=== PATIENT | female | born 1980 | race Caucasian/White ===

== ENCOUNTER 2020-07-17 13:15 | Outpatient (REF) | payer OTHER, SELFPAY ==
[2020-07-20 00:47] LABS: HPV mRNA E6/E7 rflx Not Detected (Not Detected)
== END 2020-07-17 13:16 | disposition home or self-care (01) ==
LOC: HO.LAB 13:15
PROVIDERS: PCP Internal Medicine; Visit Provider Obstetrics & Gynecology
DX: Z01.419 Encounter for gynecological examination (general) (routine) without abnormal findings (principal); D24.2 Benign neoplasm of left breast
CPT/HCPCS: 36415; 87624; 88141; 88142

== ENCOUNTER 2023-12-04 08:29 | Outpatient (AMB) | payer BC, SELFPAY ==
--- NOTE | 2023-12-04 08:32 | MHC.PC.OV ---
Vital Signs 12/04/23 08:33 Height 5 ft 4 in Weight 192 lb BMI 33.0 BP 130/88 Blood Pressure Location Rt brachial Position Sitting Pulse 102 H Pulse Source Pulse Oximeter Pulse Oximetry (%) 98 Oxygen Delivery Method Room Air Intake Visit Reasons: Physical Intake Note: Pt is here today for PE. Allergies No Known Allergies Allergy (Verified 12/04/23 08:34) Medication List - Last Reconciled 12/04/23 by Rachana Rosa MD clonazepam 0.5 mg PO DAILY dextroamphetamine-amphetamine 10 mg 20 mg PO DAILY fluoxetine (Prozac) 20 mg PO .qd lisinopril 5 mg PO DAILY Tobacco use date assessed: 12/04/23 Dental Screening Dental Screen Date: 12/04/23 Did you have a dental visit in the last 12 months?: Yes Did you have a dental problem in the last 6 months where you did not have access to dental care?: No Was dental information given to patient?: Patient has dentist HPI Physical HPI Details Pt presents for PE. Pt f/u with psychiatrist and therapist for ADHD chronic anxiety controlled on current medications. She has not been taking lisinopril and is planning to start regular exercise. [facility] Medical History HTN (hypertension) Normal Pap smear Eating disorder ADHD Anxiety Annual physical exam Patient denies medical problems Surgical History History of dilation and curettage History of breast biopsy Family History Father No problems noted. Mother Mental health disorder Social History Household Members Other:: In relationship, works as a social media developer Housing: House Alcohol intake: current Alcohol intake frequency: holidays/special occasions only Patient Tobacco Use Status: Former Tobacco user e-Cigarette/Vaping Use: Never Used Substance Use Type: Marijuana service: No Current occupational status: employed Gender identity: Female Cognitive needs: No Hearing needs: No Vision needs: Yes Questionnaire PHQ-9 Over the last 2 weeks, how often have you been bothered by any of the following problems? 1. Little interest or pleasure in doing things: several days 2. Feeling down, depressed, or hopeless: several days 3. Trouble falling or staying asleep, or sleeping too much: more than half the days 4. Feeling tired or having little energy: several days 5. Poor appetite or overeating: not at all 6. Feeling bad about yourself - or that you are a failure or have let yourself or your family down: several days 7. Trouble concentrating on things, such as reading the newspaper or watching television: several days 8. Moving or speaking so slowly that other people could have noticed. Or the opposite - being so fidgety or restless that you have been moving around a lot more than usual: not at all 9. Thoughts that you would be better off or of hurting yourself in some way: not at all Total score: 7 Depression Screening Interpretation: Negative Depression Screening Done: Yes Source: Developed by Drs. Anson Dietrich, Alejandra Orantes, Daniel Ames and colleagues, with an educational anthony from [employer]. Thrive Questionnaire Date Thrive assessed: 12/04/23 I am a: Patient What is your living situation today?: I have a steady place to live Within the past 12 months, did the food you bought not last and you didn't have the money to get more?: Never true Within the past 12 months, did you worry whether your food would run out before you got money to buy more?: Never true Do you have trouble paying for medicines?: No Do you have trouble getting transportation to medical appointments?: No Do you have trouble paying your heating and electricity bill?: No Do you have trouble taking care of your child, family member or friend?: No Do you have trouble with day-to-day activities such as bathing, preparing meals, shopping, managing finances, etc.?: No Are you currently unemployed and looking for a job?: No Are you interested in more education?: No Please select the resources that you would like help with: Housing/Residential Currently or been in a relationship where the following occur: No concerns reported THRIVE Score: 0 AUDIT C Alcohol Use Questionnaire (AUDIT-C) 1. How often do you have a drink containing alcohol?: 4 or more times a week 2. How many drinks containing alcohol do you have on a typical day when you are drinking?: 1 or 2 3. How often do you have six or more drinks on one occasion?: Less than monthly Total Score: 5 MARIA M-7 AMB Questionnaire MARIA M-7 Date MARIA M - 7 assessed: 12/04/23 Feeling nervous, anxious, or on edge: 2 = More than half the days Not being able to stop or control worryin = Several days Worrying too much about different things: 1 = Several days Trouble relaxin = Several days Being so restless that it is hard to sit still: 0 = Not at all Becoming easily annoyed or irritable: 1 = Several days Feeling afraid as if something awful might happen: 0 = Not at all Total MARIA M-7 score (0-4 normal; 5-9 mild; 10-14 moderate; 15-21 severe): 6 Source: Developed by Drs. Anson Dietrich, Alejandra Orantes, Daniel Ames and colleagues, with an educational anthony from [employer]. Review of Systems Const All systems reviewed & are unremarkable except as noted in HPI and below Reports no additional complaints Eyes Reports no additional complaints ENT Reports no additional complaints Card Reports no additional complaints Resp Reports no additional complaints GI Reports no additional complaints Reports no additional complaints Physical exam (Primary Care) Vital Signs: Last Vital Signs Pulse 102 H 12/04/23 08:33 Pulse Ox 98 12/04/23 08:33 Oxygen Delivery Method Room Air 12/04/23 08:33 BMI result Body Mass Index 33.0 Tobacco/Smoking Status: Tobacco use Status Tobacco use date assessed 12/04/23 12/04/23 08:35 Patient Tobacco Use Status Former Tobacco user 12/04/23 08:50 e-Cigarette/Vaping Use Never Used 12/04/23 08:50 PHQ-9: PHQ-9 Score PHQ-9: Total score 7 12/04/23 08:35 Depression Screening Interpretation: Negative Thrive Assessment: Date of Thrive Assessment Date Thrive assessed 12/04/23 12/04/23 08:35 Currently or been in a relationship where the following occur: No concerns reported Const General: no acute distress HENMT Head: Yes normal to inspection Ears: hearing grossly normal bilaterally Face and sinus: Yes normal facial exam Throat: Yes posterior oropharynx normal Eyes General: appearance normal, both eyes and all related structures Neck Neck: Yes no lymphadenopathy and Yes supple Resp Effort & Inspection: normal respiratory effort Auscultation: clear to auscultation bilaterally Cardio Rhythm: regular rhythm Heart sounds: S1 normal heart sound present and S2 normal heart sound present GI Inspection: Yes normal to inspection Palpation (GI): Soft to palpation Percussion: Yes normal to percussion Auscultation: normal bowel sounds Assessment and Plan Assessment & Plan (1) ADHD: Code(s): F90.9 - Attention-deficit hyperactivity disorder, unspecified type Plan: Follow-up with the psychiatrist and therapist (2) Anxiety: Code(s): F41.9 - Anxiety disorder, unspecified Plan: Stress management mindfulness increasing regular physical activity discussed with the patient (3) Annual physical exam: Code(s): Z00.00 - Encounter for general adult medical examination without abnormal findings Plan: Well-balanced diet regular physical activity discussed with the patient she will return for fasting blood work. For borderline elevated blood pressure patient was advised to avoid salt intake lose weight and return in 3 months. Patient will have a fasting blood work next week. He is up-to-date with the Pap smear mammogram by plaster foreman Orders: Orders Comprehensive [place]. Panel Fast Today F41.9 - Anxiety disorder, unspecified, F90.9 - Attention-deficit hyperactivity disorder, unspecified type, Z00.00 - Encounter for general adult medical examination without abnormal findings Lipid Panel Today F41.9 - Anxiety disorder, unspecified, F90.9 - Attention-deficit hyperactivity disorder, unspecified type, Z00.00 - Encounter for general adult medical examination without abnormal findings UA w Microscopic Today F41.9 - Anxiety disorder, unspecified, F90.9 - Attention-deficit hyperactivity disorder, unspecified type, Z00.00 - Encounter for general adult medical examination without abnormal findings Complete Blood Count Auto Diff Today F41.9 - Anxiety disorder, unspecified, F90.9 - Attention-deficit hyperactivity disorder, unspecified type, Z00.00 - Encounter for general adult medical examination without abnormal findings TSH reflex Free T4 Today F41.9 - Anxiety disorder, unspecified, F90.9 - Attention-deficit hyperactivity disorder, unspecified type, Z00.00 - Encounter for general adult medical examination without abnormal findings Vitamin D 25-OH Total Today F41.9 - Anxiety disorder, unspecified, F90.9 - Attention-deficit hyperactivity disorder, unspecified type, Z00.00 - Encounter for general adult medical examination without abnormal findings Medications: Discontinued lisinopril Discontinued Reason: Doctor's Order 5 mg PO DAILY 30 tabs 5RF Coding Level of Care Code Est Pt Prev Care 40-64y(95327) Diagnoses ADHD F90.9 Anxiety F41.9 Annual physical exam Z00.00
[2023-12-04 08:33] VITALS: BP 130/88; PULSE 102; O2SAT 98; BMI 33.0
== END 2023-12-04 09:47 | disposition home or self-care (01) ==
PROVIDERS: PCP Internal Medicine; Visit Provider Internal Medicine
DX: F90.9 Attention-deficit hyperactivity disorder, unspecified type (principal); F41.9 Anxiety disorder, unspecified; Z00.00 Encounter for general adult medical examination without abnormal findings
CPT/HCPCS: 99396

== ENCOUNTER 2024-12-06 12:49 | Emergency (ER) | payer BC, SELFPAY ==
[2024-12-06] VITALS (9 sets, daily range): BP systolic 122–177; BP diastolic 77–110; PULSE 57–102; RESP 12–18; TEMP 36–36.6; O2SAT 95–99; BMI 27.9
--- NOTE | ~2024-12-06 | XR_ITS ---
EXAMINATION: XR CHEST CLINICAL INFORMATION: cpr prior to arrival COMPARISON: None available. TECHNIQUE: 2 views of the chest were obtained. FINDINGS: The cardiac, hilar, and mediastinal contours are normal. The lungs are clear bilaterally. There is no pneumothorax or pleural effusion. There is no focal osseous or soft tissue abnormality. No definite rib fractures identified. XR/XR chest 2V IMPRESSION: No acute findings in the thorax. Electronically signed by: Darvin Jha MD 12/06/2024 04:25 PM EDT
--- NOTE | 2024-12-06 13:03 | ED.GENADULT ---
HPI - General Adult General Chief complaint: ETOH/Substance Use Stated complaint: FOUND UNRESPONSIVE, OD, NARCAN GIVEN, NONREBREATHE Time Seen by Provider: 12/06/24 13:02 Source: patient, EMS, RN notes reviewed and old records reviewed Mode of arrival: EMS Limitations: no limitations History of Present Illness ED Provider: Shweta HPI narrative: Patient is a 44-year-old female with history of HTN, anxiety, ADHD presenting to the ED via EMS after being found unresponsive by her . EMS gave 2mg IN Narcan on arrival with improvement in alertness. Patient admits to regular cocaine and alcohol use but denies intentional use of opioids. She states no children in the home, only a dog. She denies any current physical complaints. Denies suicidal ideation. Denies history of alcohol withdrawal symptoms or seizures. Patient states she is not interested in assistance with discontinuing her alcohol or cocaine use. complaint: unresponsive Related Data Home Medications ?Medication ?Instructions ?Recorded ?Confirmed clonazepam 0.5 mg tablet 0.5 mg PO DAILY 07/17/20 12/04/23 dextroamphetamine-amphetamine 10 20 mg PO DAILY 12/04/23 12/04/23 mg tablet fluoxetine 20 mg capsule (Prozac) 20 mg PO .qd 12/04/23 12/04/23 Allergies Allergy/AdvReac Type Severity Reaction Status Date / Time No Known Allergies Allergy Verified 12/06/24 13:11 Review of Systems Review of Systems: As per HPI Yes all other systems are reviewed and are negative Constitutional: Constitutional: Reports as per HPI PMFSH Past Medical History Medical History HTN (hypertension) Normal Pap smear Eating disorder ADHD Anxiety Annual physical exam Patient denies medical problems Surgical History History of dilation and curettage History of breast biopsy Family History Family History Father No problems noted. Mother Mental health disorder Social History Social History Household Members Other:: In relationship, works as a social worker aide Housing: House Alcohol intake: current Alcohol intake frequency: 0-2 drinks per day Alcohol type: wine Patient Tobacco Use Status: Former Tobacco user Smoked in Last 30 Days: No e-Cigarette/Vaping Use: Never Used Use of substances other than those prescribed or required for medical reasons: Yes Substance Use Type: Crack/Cocaine Substance Use Frequency: Daily Advance Directives: No Advance Directives Information Provided: Yes Patient : No service: No Current occupational status: employed Gender identity: Female Cognitive needs: No Hearing needs: No Vision needs: Yes Physical Exam ED Vital Signs: Vital Signs - 24 hr 12/06/24 13:08 12/06/24 13:12 12/06/24 15:11 Temperature 96.9 F 96.8 F Pulse Rate 87 85 57 Respiratory Rate 16 16 12 Blood Pressure 177/104 H 150/87 H Pulse Oximetry 99 98 99 Oxygen Delivery Method Room Air Room Air Room Air 12/06/24 17:52 12/06/24 19:10 12/06/24 21:13 Temperature 97.9 F 97.5 F Pulse Rate 65 76 63 Respiratory Rate 12 15 18 Blood Pressure 125/86 141/94 H 122/77 Pulse Oximetry 98 97 95 Oxygen Delivery Method Room Air Room Air Room Air 12/06/24 21:20 Temperature 97.5 F Pulse Rate 63 Respiratory Rate 18 Blood Pressure 122/77 Pulse Oximetry 95 Oxygen Delivery Method Room Air BMI result Body Mass Index 27.9 Vital signs have been reviewed and appear to be correct. Blood pressure elevated. Heart rate normal. Respiratory rate normal. Temperature normal. Oxygen saturation normal. Const General: cooperative, healthy appearing and no acute distress Orientation/consciousness: oriented to person, oriented to place, oriented to time and patient oriented x3 Limitations: no limitations [facility] Head: Yes normocephalic and Yes atraumatic Ears: external ears normal General nose exam: Normal external nose present Face and sinus: Yes face symmetric Mouth: oropharynx normal and moist mucous membranes Throat: Yes uvula midline Eyes Pupils: Equal, round and reactive pupils present Neck Neck: Yes normal visual inspection and Yes supple Resp Effort & Inspection: normal respiratory effort and able to speak in complete sentences Auscultation: clear to auscultation bilaterally Cardio Rate: regular rate Rhythm: regular rhythm Heart sounds: S1 normal heart sound present and S2 normal heart sound present GI Palpation (GI): Soft to palpation and nontender Auscultation: normoactive bowel sounds General: Yes no CVA tenderness Back/Spine/Pelvis Back: no CVA tenderness Skin General skin exam: elasticity normal and turgor normal Neuro General: oriented to person, oriented to place, oriented to time, patient oriented x3, moves all extremities, no focal motor deficits and CN's II-XI intact bilaterally Cranial nerves: Yes Equal, round and reactive pupils present Cognition (Neuro): normal cognition Extrem General: Yes full ROM, Yes no pedal edema and Yes no calf tenderness Psych Mental Status: mental status grossly normal Affect: normal affect Thought process: Normal thought process present Course Course Course Narrative: 11:32 PM 12/06/2024 (Eligio OLSON): Patient was signed out to this provider at shift change. In summary the patient is a 44-year-old female seen for evaluation after she was found unresponsive by her at home. EMS gave Narcan x2 with good effect. The patient admits to daily cocaine use but denies any active opiate use. The patient denies suicidal or homicidal ideation. Patient had no complaints in the ED but was signed out pending observation, as well as results of urinalysis and urine toxicity. The patient is urinalysis shows contaminated sample, urine toxicity is positive for cocaine and fentanyl. The patient is currently feeling well, requesting discharge. Patient patient was noted at times to have low oxygen levels when falling asleep, however oxygen levels would return to normal with waking, the patient has been witnessed ambulating multiple times with a steady gait. Patient has been observed a total of 10 hours. Patient will be discharged to her own care. Medications Administered Discontinued Medications Generic Name Dose Route Start Last Admin Trade Name Tone PRN Reason Stop Dose Admin Naloxone HCl 8 mg 12/06/24 13:05 12/06/24 14:59 Naloxone Hcl Nasal Take Home 4 Mg [place] NOSTRILALT 12/06/24 13:06 8 mg ONCE ONE Administration Naloxone HCl 0.2 mg 12/06/24 14:55 12/06/24 14:59 Naloxone Hcl 0.4 Mg/Ml Vial IVPUSH 12/06/24 14:56 0.2 mg STAT STA Administration Naloxone HCl 0.2 mg 12/06/24 17:38 12/06/24 17:51 Naloxone Hcl 0.4 Mg/Ml Vial IVPUSH 12/06/24 17:39 0.2 mg STAT STA Administration Ondansetron HCl 4 mg 12/06/24 17:40 12/06/24 17:50 Ondansetron Hcl 4 Mg/2 Ml Vial IVPUSH 12/06/24 17:41 4 mg ONCE ONE Administration Medical Decision Making Medical Decision Making [facility] Narrative: Patient is a 44-year-old female with history of HTN, anxiety, ADHD presenting to the ED via EMS after being found unresponsive by her . On exam patient is awake, A+Ox3, VS WNL, afebrile, normal neurological exam without focal deficits, physical exam findings as above. Given reported symptoms and physical exam findings, initial differential includes but is not limited to unintentional overdose, drug or alcohol intoxication or withdrawal, electrolyte abnormality. Notified by RN that patient's reported on arrival that he performed CPR on the patient as directed by 911 dispatch until EMS arrived. Labs notable for leukocytosis of 25, likely due to CPR, as patient denies other complaints, mildly elevated transaminases, patient denies any abdominal pain, ethanol negative. X-ray chest notable for no evidence of traumatic injury related to CPR. My interpretation is in agreement with the radiologist's interpretation. 18:00 Notified by LOUIS Gupta that patient's oxygen saturation dropped to 84%, with RR of 8. Will give additional 0.2mg dose of naloxone. Patient signed out to [facility] [place] pending UA, UDS, and patient being able to maintain awake and alert status without respiratory compromise. Differential Diagnosis Differential Diagnoses: The differential diagnosis associated with the presentation includes as per [facility] Admission/Observation Consideration of admission/observation: Escalation of care including admission/observation considered Patient would have been admitted to the hospital had their clinical presentation warranted hospital admission. Lab Data [facility] Lab Attestation statement: I reviewed the patient's lab results. As per [facility] 12/06/24 14:08 12/06/24 14:08 Labs: Lab Results 12/06/24 12/06/24 Range/Units 14:08 18:14 WBC 25.3 H (4.8-10.8) X10*3/uL RBC 4.59 (4.20-5.50) X10*6/uL Hgb 13.6 (12.0-16.0) g/dl Hct 41.2 (37.0-47.0) % MCV 89.8 (80.0-98.0) fL MCH 29.6 (27.0-33.0) pg MCHC 33.0 (31.0-35.0) g/dl RDW 12.8 (11.0-16.0) % Plt Count 411 H (160-400) X10*3/uL MPV 9.3 L (9.4-12.3) fL Immature Gran % (Auto) 0.8 H (0.0-0.4) % Neut % (Auto) 86.7 H (45-73) % Lymph % (Auto) 7.2 L (20-40) % [place] % (Auto) 4.3 (2-11) % Eos % (Auto) 0.6 (0-4) % Baso % (Auto) 0.4 (0-2) % Lymph # (Auto) 1.8 (1.2-4.9) X10*3/uL [place] # (Auto) 1.1 (0.1-1.2) X10*3/uL Eos # (Auto) 0.2 (0.0-0.4) X10*3/uL Baso # (Auto) 0.1 (0.0-0.2) X10*3/uL Abs Immat Gran (auto) 0.20 H (0.00-0.03) X10*3/uL Absolute Neuts (auto) 22.0 H (2.0-8.3) x10*3/uL Absolute Nucleated RBC 0.000 (0.0-0.012) X10*3/uL Nucleated RBC % (auto) 0.0 (0.0-0.2) /100WBC Smear Tech's Comments VERIFIED Sodium 142 (135-145) mmol/L Potassium 4.4 (3.3-5.1) mmol/L Chloride 106 (96-108) mmol/L Carbon Dioxide 28 (22-29) mmol/L Anion Gap 12 (12-20) BUN 13 (9-16) mg/dL Creatinine 0.82 (0.5-1.4) mg/dL Estim Creat Clear Calc 87.9 Estimated GFR > 60 Random Glucose 268 H (60-115) mg/dL Calcium 9.6 (8.4-10.2) mg/dL Total Bilirubin 0.2 (0.0-1.0) mg/dL AST 163 H (5-31) U/L ALT 123 H (0-31) U/L Alkaline Phosphatase 72 (39-117) U/L Total Protein 7.4 (6.5-8.0) g/dL Albumin 4.6 (3.5-5.0) g/dL Urine Color Yellow Urine Appearance Cloudy Urine pH 6.0 (5.0-9.0) Ur Specific [place] 1.025 (1.005-1.025) Urine Protein 30 (1+) H (Neg-Trace) mg/dL Urine Glucose (UA) 500 H (Negative) mg/dL Urine Ketones Negative (Negative) mg/dL Urine Blood Negative (Negative) Urine Nitrite Negative (Negative) Ur Leukocyte Esterase Negative (Negative) Urine RBC 0-2 (0-2) /HPF Urine WBC 0-5 (0-5) /HPF Ur Squamous Epith Cells 11-20 (0-2) /HPF Urine Bacteria 4+ (None Seen) Hyaline Casts >20 (0-2) /LPF Urine Test NEGATIVE (NEGATIVE) Urine Opiates Screen POSITIVE H (Not Detect) Ur Buprenorphine Scrn Not Detected (Not Detect) ng/mL Ur Oxycodone Screen Not Detected (Not Detect) ng/mL Urine Methadone Screen Not Detected (Not Detect) ng/mL Urine Fentanyl Screen POSITIVE H (Not Detect) Ur Barbiturates Screen Not Detected (Not Detect) Ur Phencyclidine Scrn Not Detected (Not Detect) Ur Amphetamines Screen Not Detected (Not Detect) U Benzodiazepines Scrn Not Detected (Not Detect) Urine Cocaine Screen POSITIVE H (Not Detect) U Marijuana (THC) Screen POSITIVE H (Not Detect) Ethyl Alcohol < 10 mg/dL Independent Interpretation I performed an independent interpretation of an: Plain X-Ray Interpretation: chest x-ray is without evidence of traumatic injury Radiology Impression Discussion of test interpretation with radiology: I have reviewed the radiologist's reading. Radiologist Impression: XR/XR chest 2V IMPRESSION: No acute findings in the thorax. External Record Review External record reviewed: Inpatient record, Office record and Outpatient record Discharge Plan Discharge Clinical Impression: Accidental overdose Patient Disposition: Home, Self-Care Instructions: Adult Overdose (ED) Additional Instructions: Overdose You were seen in our Emergency Department for an overdose today. You received Narcan in order to reverse the effects of overdose. Narcan only lasts about 45 min to 1 hour in the system. You may have been given Narcan to take home with you today, please keep it near you if you are going to use again, so others can use it if needed.? The number one risk for fatal overdose is using alone? Your white blood cell count was elevated today, likely due to the CPR that was performed on you. We recommend that you follow up with your primary care provider for repeat labs within one week. Return to the emergency department if you develop fever 100.4? F or greater, chills, body aches, shortness of breath or difficulty breathing or any other new or concerning symptoms. [employer] is a 08/12 hotline where you can be on the phone with someone while you use, and they can call for help if they suspect an overdose: [phone] Things to look out for when you leave include severe vomiting or diarrhea, headaches, muscle cramps, fever, coughing, chest pain, or if you feel so short of breath you cannot walk to the bathroom. Please seek care and return any time for worsening symptoms.? You may have been provided with safer injection?items, please take time to take care of YOU and your health. Use new supplies whenever possible to lessen the chances of infections and other illnesses.? If you need more supplies, please go [facility],? [address] [place] [address] OR you can call or text to coordinate delivery of safer supplies. If you decide you want to stop or cut down on how much you?re using, please call the numbers on the list provided to you or you can come to our outpatient Addiction Treatment office [facility] [[email or web address]] (M-F 9am-5p) [address] [place] [address], [address] [place] [address]. [phone] Prescriptions: No Action fluoxetine [Prozac] 20 mg capsule 20 mg PO .qd clonazepam 0.5 mg tablet 0.5 mg PO DAILY dextroamphetamine-amphetamine 10 mg tablet 20 mg PO DAILY Referrals: Rachana Rosa MD [Primary Care Provider, Internal Medicine] Clinical Impression: Accidental overdose Print Language: [place]
[2024-12-06 14:16] LABS: Hematocrit 41.2 % (37.0-47.0); Hemoglobin 13.6 g/dl (12.0-16.0); Imm Gran Abs Auto 0.20 X10*3/uL (0.00-0.03); Imm Gran Pct Auto 0.8 % (0.0-0.4); Lymphocytes Absolute Auto 1.8 X10*3/uL (1.2-4.9); MANUAL DIFF FLAG SCAN; Mean Corpuscular HGB Conc 33.0 g/dl (31.0-35.0); Mean Corpuscular Hemoglobin 29.6 pg (27.0-33.0); Mean Corpuscular Volume 89.8 fL (80.0-98.0); NRBC Abs Auto 0.000 X10*3/uL (0.0-0.012); NRBC Pct Auto 0.0 /100WBC (0.0-0.2); Platelet Count 411 X10*3/uL (160-400); Red Blood Count 4.59 X10*6/uL (4.20-5.50); SCAN SMEAR FLAG 1; White Blood Count 25.3 X10*3/uL (4.8-10.8)
[2024-12-06 14:30] LABS: Alanine Aminotransferase 123 U/L (0-31); Albumin Level 4.6 g/dL (3.5-5.0); Alkaline Phosphatase 72 U/L (39-117); Anion Gap 12 (12-20); Aspartate Amino Transferase 163 U/L (5-31); Blood Urea Nitrogen 13 mg/dL (9-16); Calcium 9.6 mg/dL (8.4-10.2); Carbon Dioxide 28 mmol/L (22-29); Chloride 106 mmol/L (96-108); Creatinine Clr Calc Pharmacy 87.9; Estimated Glomerular Filt Rate > 60; Potassium 4.4 mmol/L (3.3-5.1); Sodium 142 mmol/L (135-145); Total Protein 7.4 g/dL (6.5-8.0)
--- OUTSIDE RECORDS SUMMARY | 2024-12-06 14:42 | XMS_ITS | Encounter Summary ---
Author Organization Formerly [facility] Address [address] [place] [phone] Phone Care Team Providers Care Senior Mechanical Designer Name Role Phone Judy Live MD Primary Care Provider [phone] Judy Live MD Unavailable [phone] Judy Live MD Unavailable [phone] Judy Live MD Unavailable [phone] Rachana Rosa MD Primary Care Provider [phone] Bashir Medrano [facility] Unavailable @ [email or web address] Unavailable Encounter Details Date Type Department Care Team (Late st Contact Info) Description 05/27/2019 Ancillary Orders [address] [address] Judy Live MD [address] [place] [phone] [email or web address] Breast mass Social History Tobacco Use Types Packs/Day Years Used Date Smoking Tobacco: Every Day Cigarettes 0.3 26.6 Started: 04/14/1998 Smokeless Tobacco: Never Alcohol Use Standard Drinks/Week Comments Yes 7 (1 standard drink = 0.6 oz pur e alcohol) Comments No Sex and Gender Information Value Date Recorded Sex Assigned at Female 05/27/2018 11:32 AM EST Legal Sex Female 7:21 PM EST Gender Identity Female 05/27/2018 11:32 AM EST Sexual Orientation Straight 05/27/2018 11 :32 AM EST documented as of this encounter Plan of Treatment Upcoming Encounters Date Type Department Care Team (Late st Contact Info) Description 12/15/2024 9:00 AM EDT Telemedicine [address] [address] Sheryl Rodriguez, PMHNP-[address] [id number] documented as of this encounter Results * BI MAMMOGRAM DIAGNOSTIC WITH TOMOSYNTHESIS WITH CAD (BILATERAL) (05/27/2019 11:16 AM EST) Anatomical Region Laterality Modality Breast Left, Breast Right, Breast Bilateral Bila teral Mammography Impressions 05/27/2019 1:48 PM EST 1. Oval mass measuring 3.7 cm at 6 o'clock 1 cm from the nipple of the left breast correlates to the area of clinical concern as indicated by the patient. Ultrasound-guided core biopsy is recommended. The patient met with the Breast Imaging direct support specialist today to schedule the procedure. 2. Oval circumscribed masses in the left breast at 1 o'clock and 7 o'clock axes are probably benign and could represent fibroadenomas. Follow-up sonogram in 6 months is recommended. Findings and recommendations were explained to the patient. She was encouraged to follow up with her physician. BI-RADS Category 4: Suspicious Abnormality - Biopsy Should Be Considered This report has been forwarded to an automated communication system which will electronically notify appropriate providers of potentially important findings. The Breast Imaging Division will contact the patient directly to schedule the biopsy procedure. Narrative 05/27/2019 1:48 PM EST HISTORY: 38 year old female seen for diagnostic evaluation of a lump in the left breast. PROCEDURE: Diagnostic mammographic and tomosynthesis views were obtained. Computer-aided detection was utilized by the radiologist in the interpretation of this examination. BILATERAL MAMMOGRAM: This is a baseline exam. The breast tissue is heterogeneously dense, which could obscure detection of small masses. Finding 1: There is a mass in the left breast at 6 o'clock located 1 centimeter from the nipple. Mass correlates to the area of clinical concern as indicated by the patient in the left breast at 6 o'clock located 1 centimeter from the nipple. Finding 2: There are two other similar isodense, oval masses with circumscribed margins in the lower inner quadrant and upper outer quadrant of the left breast. No suspicious masses, calcifications or other abnormalities are seen in the right breast. BREAST ULTRASOUND Finding 1: A focused ultrasound was performed of the left breast at 6 o'clock located 1 centimeter from the nipple. Ultrasound demonstrates an oval isoechoic circumscribed mass with slightly heterogeneous internal cystic appearance measuring 3.7 x 2.9 x 2.2 cm in the left breast at 6 o'clock located 1 centimeter from the nipple. Finding correlates to the area of clinical concern as indicated by the patient. Finding 2: Ultrasound demonstrates two oval hypoechoic masses with circumscribed margins in the left breast at 7 o'clock located 4 cm from the nipple measuring 1.0 x 0.9 x 0.8 cm and at 1 o'clock located 3 cm from the nipple measuring 1.4 x 1.4 x 1.0 cm. Procedure Note Dinorah Arias MD - 05/27/2019 HISTORY: 38 year old female seen for diagnostic evaluation of a lump in the leftbreast. PROCEDURE: Diagnostic mammographic and tomosynthesis views were obtained.Computer-aided detection was utilized by the radiologist in theinterpretation of this examination. BILATERAL MAMMOGRAM: This is a baseline exam. The breast tissue is heterogeneously dense, which could obscure detectionof small masses. Finding 1: There is a mass in the left breast at 6 o'clock located 1centimeter from the nipple. Mass correlates to the area of clinicalconcern as indicated by the patient in the left breast at 6 o'clocklocated 1 centimeter from the nipple. Finding 2: There are two other similar isodense, oval masses withcircumscribed margins in the lower inner quadrant and upper outer quadrantof the left breast. No suspicious masses, calcifications or other abnormalities are seen inthe right breast. BREAST ULTRASOUND Finding 1: A focused ultrasound was performed of the left breast at 6o'clock located 1 centimeter from the nipple. Ultrasound demonstrates anoval isoechoic circumscribed mass with slightly heterogeneous internalcystic appearance measuring 3.7 x 2.9 x 2.2 cm in the left breast at 6o'clock located 1 centimeter from the nipple. Finding correlates to thearea of clinical concern as indicated by the patient. Finding 2: Ultrasound demonstrates two oval hypoechoic masses withcircumscribed margins in the left breast at 7 o'clock located 4 cm fromthe nipple measuring 1.0 x 0.9 x 0.8 cm and at 1 o'clock located 3 cm fromthe nipple measuring 1.4 x 1.4 x 1.0 cm. IMPRESSION: 1. Oval mass measuring 3.7 cm at 6 o'clock 1 cm from the nipple of theleft breast correlates to the area of clinical concern as indicated by thepatient. Ultrasound-guided core biopsy is recommended. The patient metwith the Breast Imaging direct support specialist today to schedule the procedure. 2. Oval circumscribed masses in the left breast at 1 o'clock and 7 o'clockaxes are probably benign and could represent fibroadenomas. Follow-upsonogram in 6 months is recommended. Findings and recommendations were explained to the patient. She wasencouraged to follow up with her physician. BI-RADS Category 4: Suspicious Abnormality - Biopsy Should Be Considered This report has been forwarded to an automated communication system whichwill electronically notify appropriate providers of potentially importantfindings. The Breast Imaging Division will contact the patient directly toschedule the biopsy procedure. us Judy Live MD IMG MG EXAMS Final Res ult documented in this encounter Visit Diagnoses Diagnosis Breast mass Lump or mass in breast Breast mass Lump or mass in breast documented in this encounter Additional Health Concerns Assessment Noted Time PHQ-9 Depression Total Score: 5 06/30/19 19 3:10 PM EST PHQ-2 Depression Total Score: 2 06/30/19 19 3:10 PM EST documented as of this encounter Care Teams Senior Mechanical Designer Relationship Specialty Start Date End Date Judy Live MD [address] [place] [phone] [email or web address] PCP - General Family Medicine 12/09/17 05/01/21 Rachana Rosa MD [facility] [place] [address] PCP - General Internal Medicine 05/02/21 Judy Live MD [address] [place] [phone] [email or web address] Attributed Provider 05/22/18 05/25/21 Judy Live MD [address] [place] [phone] [email or web address] Assigned Provider 08/24/19 01/28/20 Judy Live MD [address] [place] [phone] [email or web address] Assigned Provider 02/25/20 05/26/20 Bashir Medrano [facility] [address] [place] [phone] [email or web address] Mental Health Counselor (LMHC) 03/24/23 Sheyrl Rodriguez, [facility] [address] [place] [phone] [email or web address] Registered Nurse Nurse Practitioner 12/02/23 documented as of this encounter Additional Source Comments The information contained in this document represents components of the legal health record. It is not the complete legal health record.[facility]
[2024-12-06] MEDS: Naloxone HCl Nasal TAKE HOME 4 MG SPRAY 8 MG NOSTRILALT (14:59)
--- NOTE | 2024-12-06 15:03 | PC.NURSE ---
Pt very somnolent, easily arousable but spO2 was dipping to high 80s and respiratory rate 7-9. 0.2 mg narcan administered IV as ordered, with good effect. Pt on tele. Plan of care ongoing.
--- NOTE | 2024-12-06 17:33 | PC.NURSE ---
Pt attempting to void x 3 and unable. Reports no history of issues voiding. Bladder scan for 329, Debbie SOLUTION DESIGNER aware, will continue to encourage to void Sat noted to dip down to 80s then back up to low 90s, lowest 84%, Debbie aware and will order additional dose of Narcan. Pt does wake up easily to voice however RR as low as 8
[2024-12-06 18:23] LABS: Appearance Urine Cloudy; Glucose Urine UA 500 mg/dL (Negative); PH 6.0 (5.0-9.0); Specific Gravity - Urine 1.025 (1.005-1.025); UMIC TRIGGER UACC YES
[2024-12-06 18:24] LABS: UPreg QC Valid YES
[2024-12-06 18:32] LABS: Cannabinoid Screen Urine POSITIVE (Not Detect)
== END 2024-12-07 00:02 | disposition home or self-care (01) ==
PROVIDERS: Registered Nurse Emergency; Emergency Provider Emergency Medicine; PCP Internal Medicine
DX: T40.5X1A Poisoning by cocaine, accidental (unintentional), initial encounter (principal); R40.4 Transient alteration of awareness; Y92.009 Unspecified place in unspecified non-institutional (private) residence as the place of occurrence of the external cause; I10 Essential (primary) hypertension; F41.9 Anxiety disorder, unspecified; F90.9 Attention-deficit hyperactivity disorder, unspecified type; Z87.891 Personal history of nicotine dependence
CPT/HCPCS: 36415; 71046; 80053; 80307; 81001; 81025; 85025; 96374; 96375; 96376; 99284; 99285; J2312; J2405

== ENCOUNTER → 2024-12-06 16:08 | Outpatient (BNV) | payer BC, SELFPAY | PROVIDERS: Emergency Provider Emergency Medicine; PCP Internal Medicine; Visit Provider Radiology Diagnostic Radiology | DX: R07.9 Chest pain, unspecified (principal) | CPT/HCPCS: 71046 ==

== ENCOUNTER 2024-12-21 07:58 | Outpatient (REF) | payer OTHER, SELFPAY ==
[2024-12-21 10:07] LABS: MANUAL DIFF FLAG NO
[2024-12-21 10:18] LABS: Hematocrit 40.1 % (37.0-47.0); Hemoglobin 13.5 g/dl (12.0-16.0); Imm Gran Abs Auto 0.02 X10*3/uL (0.00-0.03); Imm Gran Pct Auto 0.2 % (0.0-0.4); Lymphocytes Absolute Auto 2.5 X10*3/uL (1.2-4.9); Mean Corpuscular HGB Conc 33.7 g/dl (31.0-35.0); Mean Corpuscular Hemoglobin 30.0 pg (27.0-33.0); Mean Corpuscular Volume 89.1 fL (80.0-98.0); NRBC Abs Auto 0.000 X10*3/uL (0.0-0.012); NRBC Pct Auto 0.0 /100WBC (0.0-0.2); Platelet Count 374 X10*3/uL (160-400); Red Blood Count 4.50 X10*6/uL (4.20-5.50); White Blood Count 8.2 X10*3/uL (4.8-10.8)
[2024-12-21 11:30] LABS: Alanine Aminotransferase 21 U/L (0-31); Albumin Level 4.5 g/dL (3.5-5.0); Alkaline Phosphatase 72 U/L (39-117); Anion Gap 14 (12-20); Aspartate Amino Transferase 19 U/L (5-31); Blood Urea Nitrogen 13 mg/dL (9-16); Calcium 9.3 mg/dL (8.4-10.2); Carbon Dioxide 30 mmol/L (22-29); Chloride 103 mmol/L (96-108); Cholesterol 234 mg/dL (<200); Estimated Glomerular Filt Rate > 60; HDL Cholesterol 67 mg/dL (>40); Potassium 3.8 mmol/L (3.3-5.1); Sodium 143 mmol/L (135-145); Total Protein 7.4 g/dL (6.5-8.0); Triglycerides 79 mg/dL (<150)
== END 2024-12-21 07:59 | disposition home or self-care (01) ==
LOC: HO.HMGCLDS 07:58
PROVIDERS: PCP Internal Medicine; Visit Provider Internal Medicine
DX: Z00.00 Encounter for general adult medical examination without abnormal findings (principal); Z13.31 Encounter for screening for depression; Z13.39 Encounter for screening examination for other mental health and behavioral disorders; F41.9 Anxiety disorder, unspecified
CPT/HCPCS: 36415; 80053; 80061; 84443; 85025; 96127

== ENCOUNTER 2024-12-21 07:58 | Outpatient (AMB) | payer OTHER, SELFPAY ==
--- OUTSIDE RECORDS SUMMARY | 2024-12-21 08:01 | XMS_ITS | Encounter Summary ---
Author Organization [facility] Address [address] [place] [phone] Phone Care Team Providers Care Taxation Accountant Name Role Phone Judy Live MD Primary Care Provider [phone] Judy Live MD Unavailable [phone] Judy Live MD Unavailable [phone] Judy Live MD Unavailable [phone] Rachana Rosa MD Primary Care Provider [phone] Bashir Medrano [facility] [place] [email or web address] Encounter Details Date Type Department Care Team (Late st Contact Info) Description 05/27/2019 Ancillary Orders [address] [address] Judy Live MD [address] [place] [phone] [email or web address] Breast mass Social History Tobacco Use Types Packs/Day Years Used Date Smoking Tobacco: Every Day Cigarettes 0.3 26.7 Started: 04/14/1998 Smokeless Tobacco: Never Alcohol Use [...] Care Team (Late st Contact Info) Description 01/12/2025 9:30 AM EDT Telemedicine [address] [address] Sheryl Rodriguez, PMHNP-[address] [address] [email or web address] documented as of this encounter Results * [...] The patient met with the Breast Imaging sales support engineer today to schedule the procedure. 2. Oval [...] recommended. The patient metwith the Breast Imaging sales support engineer today to schedule the procedure. 2. Oval [...] documented as of this encounter Care Teams Taxation Accountant Relationship Specialty Start Date End Date Judy Live MD [address] [place] [phone] [email or web address] PCP - General Family Medicine 12/09/17 05/01/21 Rachana Rosa MD [facility] [place] [address] PCP - General Internal Medicine 05/02/21 Judy Live MD [address] [place] [phone] [email or web address] Attributed Provider 05/22/18 05/25/21 Judy Live MD [address] [place] [phone] [email or web address] Assigned Provider 08/24/19 01/28/20 Judy Live MD [address] [place] [phone] [email or web address] Insurance Assigned Provider 02/25/20 05/26/20 Bashir Medrano [facility] [address] [place] [phone] [email or web address] Mental Health Counselor (LMHC) 03/24/23 Sheryl Rodriguez, [facility] [address] [place] [phone] [email or web address] Registered Nurse Nurse Practitioner 12/02/23 documented as of this encounter Additional Source Comments The information contained in this document represents components of the legal health record. It is not the complete legal health record.[facility]
[2024-12-21 08:10] VITALS: BP 128/86; PULSE 88; RESP 18; TEMP 36.5; O2SAT 98; BMI 27.8
--- NOTE | 2024-12-21 08:10 | A.OFFPC_ITS ---
Vital Signs 12/21/24 08:10 Height 5 ft 4 in Weight 162 lb BMI 27.8 BP 128/86 Blood Pressure Location Lt brachial Position Sitting Respiration 18 Pulse 88 Pulse Source Pulse Oximeter Temp 97.7 F Temp Source Oral Pulse Oximetry (%) 98 Oxygen Delivery Method Room Air Intake Visit Reasons: PE Intake Note: Pt is here today for PE. Allergies No Known Allergies Allergy (Verified 12/21/24 08:16) Medication List - Last Reconciled 12/21/24 by Rachana Rosa MD clonazepam 0.5 mg PO DAILY dextroamphetamine-amphetamine 10 mg 10 mg PO DAILY fluoxetine (Prozac) 20 mg PO .qd Tobacco use date assessed: 12/21/24 Dental Screening Dental Screen Date: 12/21/24 Did you have a dental visit in the last 12 months?: Yes Did you have a dental problem in the last 6 months where you did not have access to dental care?: No Was dental information given to patient?: Patient has dentist HPI PE HPI Details Pt presents for PE. Pt was in ER after found unresponsive ? fentanyl OD. PFSH Medical History HTN (hypertension) Normal Pap smear Eating disorder ADHD Anxiety Annual physical exam Patient denies medical problems Surgical History History of dilation and curettage History of breast biopsy Family History Father No problems noted. Mother Mental health disorder Social History Household Members Other:: In relationship, works as a social media senior associate Housing: House Alcohol intake: current Alcohol intake frequency: 0-2 drinks per day Alcohol type: wine Patient Tobacco Use Status: Former Tobacco user e-Cigarette/Vaping Use: Never Used Substance Use Type: Crack/Cocaine service: No Current occupational status: employed Gender identity: Female Cognitive needs: No Hearing needs: No Vision needs: Yes Questionnaire PHQ-9 Over the last 2 weeks, how often have you been bothered by any of the following problems? 1. Little interest or pleasure in doing things: several days 2. Feeling down, depressed, or hopeless: several days 3. Trouble falling or staying asleep, or sleeping too much: several days 4. Feeling tired or having little energy: several days 5. Poor appetite or overeating: several days 6. Feeling bad about yourself - or that you are a failure or have let yourself o r your family down: more than half the days 7. Trouble concentrating on things, such as reading the newspaper or watching television: several days 8. Moving or speaking so slowly that other people could have noticed. Or the opposite - being so fidgety or restless that you have been moving around a lot more than usual: not at all 9. Thoughts that you would be better off or of hurting yourself in some way: not at all Total score: 8 Depression Screening Interpretation: Negative Depression Screening Done: Yes 48797 - PHQ-9 Billing: Yes Source: Developed by Drs. Anson Dietrich, Alejandra Orantes, Daniel Ames and colleagues, with an educational anthony from [employer]. Thrive Questionnaire Date Thrive assessed: 12/21/24 I am a: Patient What is your living situation today?: I have a steady place to live Within the past 12 months, did the food you bought not last and you didn't have the money to get more?: Never true Within the past 12 months, did you worry whether your food would run out before you got money to buy more?: Never true Do you have trouble paying for medicines?: No Do you have trouble getting transportation to medical appointments?: No Do you have trouble paying your heating and electricity bill?: No Do you have trouble taking care of your child, family member or friend?: No Do you have trouble with day-to-day activities such as bathing, preparing meals, shopping, managing finances, etc.?: No Are you currently unemployed and looking for a job?: No Are you interested in more education?: No Please select the resources that you would like help with: None Currently or been in a relationship where the following occur: No concerns reported THRIVE Score: 0 AUDIT C Alcohol Use Questionnaire (AUDIT-C) 1. How often do you have a drink containing alcohol?: 4 or more times a week 2. How many drinks containing alcohol do you have on a typical day when you are drinking?: 1 or 2 3. How often do you have six or more drinks on one occasion?: Less than monthly Total Score: 5 MARIA M-7 AMB Questionnaire MARIA M-7 Date MARIA M - 7 assessed: 12/21/24 Feeling nervous, anxious, or on edge: 1 = Several days Not being able to stop or control worryin = Several days Worrying too much about different things: 1 = Several days Trouble relaxin = Several days Being so restless that it is hard to sit still: 1 = Several days Becoming easily annoyed or irritable: 1 = Several days Feeling afraid as if something awful might happen: 0 = Not at all Total MARIA M-7 score (0-4 normal; 5-9 mild; 10-14 moderate; 15-21 severe): 6 Source: Developed by Drs. Anson Dietrich, Alejandra Orantes, Daniel Ames and colleagues, with an educational anthony from [employer]. MARIA M-7 Assessment Billing MARIA M-7 Assessment Tool: MARIA M-7 Assessment 71894 Review of Systems Const All systems reviewed & are unremarkable except as noted in HPI and below Reports no additional complaints Eyes Reports no additional complaints ENT Reports no additional complaints Card Reports no additional complaints Resp Reports no additional complaints GI Reports no additional complaints Reports no additional complaints Physical exam (Primary Care) Vital Signs: Last Vital Signs Temp 97.7 F 12/21/24 08:10 Pulse 88 12/21/24 08:10 Resp 18 12/21/24 08:10 BP 128/86 12/21/24 08:10 Pulse Ox 98 12/21/24 08:10 Oxygen Delivery Method Room Air 12/21/24 08:10 BMI result Body Mass Index 27.8 Tobacco/Smoking Status: Tobacco use Status Tobacco use date assessed 12/21/24 12/21/24 08:18 Patient Tobacco Use Status Former Tobacco user 12/21/24 08:10 e-Cigarette/Vaping Use Never Used 12/21/24 08:10 PHQ-9: PHQ-9 Score PHQ-9: Total score 8 12/21/24 08:18 Depression Screening Interpretation: Negative Thrive Assessment: Date of Thrive Assessment Date Thrive assessed 12/21/24 12/21/24 08:18 Currently or been in a relationship where the following occur: No concerns reported Const General: no acute distress HENMT Head: Yes normal to inspection General nose exam: Normal external nose present Mouth: Normal oral and palatal mucosa present Eyes General: appearance normal, both eyes and all related structures Neck Neck: Yes no lymphadenopathy and Yes supple Chest Breast/axilla inspection: normal inspection of the breasts Breast/axilla palpation: normal palpation of the breasts and normal palpation of the axillae Resp Effort & Inspection: normal respiratory effort Auscultation: clear to auscultation bilaterally Cardio Rhythm: regular rhythm Heart sounds: S1 normal heart sound present and S2 normal heart sound present GI Inspection: Yes normal to inspection Palpation (GI): Soft to palpation Percussion: Yes normal to percussion Auscultation: normal bowel sounds Speculum Exam - Vagina: normal appearance of the vagina Speculum Exam - Cervix: normal appearance of the cervix Bimanual exam- vagina & uterus: normal bimanual exam Coding Level of Care Code Est Pt Prev Care 40-64y(44658) Diagnoses Annual physical exam Z00.00 Anxiety F41.9 Additional Codes MARIA M-7 Assessment Billing - MARIA M-7 Assessment Tool: MARIA M-7 Assessment 73588 ([id number]) PHQ-9 - 20923 - PHQ-9 Billing: Yes ([id number]) Assessment & Plan Assessment & Plan (1) Annual physical exam: Code(s): Z00.00 - Encounter for general adult medical examination without abnormal findings Category: Medical Plan: Well-balanced diet regular physical activity discussed with the patient, she will have a mammogram at [facility]. Pap smear was done today. Patient will have a fasting blood work today (2) Anxiety: Code(s): F41.9 - Anxiety disorder, unspecified Category: Medical Plan: Continue medications patient is established with psychiatry and counseling Orders: Orders Comprehensive Met. Panel Today Z00.00 - Encounter for general adult medical examination without abnormal findings Complete Blood Count Auto Diff Today Z00.00 - Encounter for general adult medical examination without abnormal findings UA w Microscopic Today R73.9 - Hyperglycemia, unspecified, Z00.00 - Encounter for general adult medical examination without abnormal findings TSH reflex Free T4 Today Z00.00 - Encounter for general adult medical examination without abnormal findings Lipid Panel Today Z00.00 - Encounter for general adult medical examination without abnormal findings Hemoglobin A1c Today R73.9 - Hyperglycemia, unspecified, Z00.00 - Encounter for general adult medical examination without abnormal findings
== END 2024-12-21 09:13 | disposition home or self-care (01) ==
LOC: HO.HMCC 07:59
PROVIDERS: PCP Internal Medicine; Visit Provider Internal Medicine
DX: Z00.00 Encounter for general adult medical examination without abnormal findings (principal); F41.9 Anxiety disorder, unspecified

== ENCOUNTER 2024-12-21 09:24 | Outpatient (REF) | payer OTHER, SELFPAY | END 2024-12-21 09:25 | disposition home or self-care (01) | LOC: HO.LNP 09:24 | PROVIDERS: Visit Provider Internal Medicine | DX: Z00.00 Encounter for general adult medical examination without abnormal findings (principal); Z11.51 Encounter for screening for human papillomavirus (HPV); R73.9 Hyperglycemia, unspecified; R87.610 Atypical squamous cells of undetermined significance on cytologic smear of cervix (ASC-US) | CPT/HCPCS: 87626; 88175 ==